=== PATIENT | female | born 1965 | race Caucasian/White ===

== ENCOUNTER 2016-12-20 21:00 | Inpatient (IN) | payer MEDICAID ==
[~2016-12-20] VITALS: Ht 167.6 cm; Wt 83.5 kg
[2016-12-20] MEDS ORDERED: SODIUM CHLORIDE 0.9% 1,000 ML IV ONE (21:06)
[2016-12-20] MEDS ORDERED: PROPOFOL 10MG/ML 100ML 100 ML IV ONE ×2 (21:38→21:45)
[2016-12-20 22:00] LABS: CLARITY URINE CLOUDY (CLEAR); COLOR URINE YELLOW (YELLOW); GLUCOSE URINE 3+ (NEGATIVE); KETONES URINE 4+ (NEGATIVE); LEUKOCYTE ESTERASE URINE NEGATIVE (NEGATIVE); NITRITE URINE NEGATIVE (NEGATIVE); OCCULT BLOOD URINE 3+ (NEGATIVE); PH URINE 5.5 (4.5-8.0); PROTEIN URINE 1+ (NEGATIVE); SPECIFIC GRAVITY URINE 1.026 (1.005-1.030)
[2016-12-20 22:12] LABS: BG BASE EXCESS -14.7 mmol/L (-2.0-2.0); BG CARBOXYHEMOGLOBIN 0.2 % (0.5-1.5); BG DEOXYHEMOGLOBIN 1.2 % (0.0-5.0); BG FRACTION INSPIRED OXYGEN 100; BG HCO3 ACT 11.6 mmol/L (22.0-26.0); BG METHEMOGLOBIN 0.4 % (0.0-1.5); BG OXYGEN SATURATION 98.8 % (92.0-98.5); BG OXYHEMOGLOBIN 98.2 % (94.0-97.0); BG PCO2 29.1 mmHg (35.0-45.0); BG PH 7.219 (7.350-7.450); BG PO2 167.2 mmHg (75.0-100.0); BG SAMPLE SITE RIGHT BRACHIAL; BG TIDAL VOLUME(mL) 550 mL; BG TOTAL HEMOGLOBIN 12.1 g/dL (12.0-18.0); BG VENT MODE VENT - A/C; BG VENT RATE 18 set
[2016-12-20 22:13] LABS: *AMPHETAMINES SCREEN URINE NEGATIVE (NEGATIVE); *BARBITURATES SCREEN URINE NEGATIVE (NEGATIVE); *BENZODIAZEPINES SCREEN URINE NEGATIVE (NEGATIVE); *COCAINE SCREEN URINE NEGATIVE (NEGATIVE); CANNABINOID URINE SCREEN NEGATIVE (NEGATIVE); METHADONE URINE SCREEN NEGATIVE (NEGATIVE); OPIATES URINE SCREEN NEGATIVE (NEGATIVE); PHENCYCLIDINE URINE SCREEN NEGATIVE (NEGATIVE)
[2016-12-20] MEDS ORDERED: ALBUTEROL (0.083%) 2.5MG/3ML NEB HHN STA (22:57)
[2016-12-20] MEDS ORDERED: IPRATROPIUM BROMIDE (0.02%) 0.5MG/2.5ML NEB HHN STA (22:57)
[2016-12-20] MEDS ORDERED: METHYLPREDNISOLONE SOD SUCC 125 MG/2 ML VIAL IV STA (22:57)
[2016-12-20 23:00] LABS: HEMATOCRIT. 36.3 % (36.0-48.0); HEMOGLOBIN. 11.5 g/dL (12.0-16.0); MEAN CORPUSCULAR HEMOGLOBIN 28.2 pg (28.0-32.0); MEAN CORPUSCULAR VOLUME 89.4 fL (81.0-99.0); MEAN PLATELET VOLUME 11.5 fl (7.4-10.4); PLATELET 127 x1000/uL (130-400); RED BLOOD CELL COUNT 4.07 mill/uL (4.2-5.4); RED CELL DISTRIBUTION WIDTH 17.1 % (11.6-14.6)
[2016-12-20] MEDS ORDERED: MAGNESIUM 2 G PREMIX 50 ML IV ONE (23:00)
[2016-12-20] MEDS ORDERED: PIPERACILLIN/TAZ 3.375G PREMIX 50 ML IV ONE (23:00)
[2016-12-20] MEDS ORDERED: SODIUM CHLORIDE 0.9% 1000ML BAG (SEPSIS BOLUS) IV ONE (23:00)
[2016-12-20 23:09] LABS: HCG SCREEN NEGATIVE; INR 1.1; PROTHROMBIN TIME 10.9 sec
[2016-12-20] MEDS ORDERED: IPRATROPIUM/ALBUTEROL 0.5-3(2.5)MG/3ML NEB ONE (23:10)
[2016-12-20] MEDS ORDERED: ALBUTEROL (0.5%) 2.5MG/0.5ML NEB HHN ONE (23:10)
[2016-12-20 23:12] LABS: PLATELET ESTIMATE SLIGHTLY DECREASED
[2016-12-20 23:14] LABS: CARBON DIOXIDE 14 mEq/L (21-32); CHLORIDE 104 mEq/L (98-107); ETHANOL BLOOD < 10 mg/dL
[2016-12-20] MEDS ORDERED: INSULIN REGULAR (DRIP) 100 UNITS in SODIUM CHLORIDE 0.9% 100 ML IV ONE ×2 (23:25→23:45)
[2016-12-20] MEDS ORDERED: POTASSIUM CHLORIDE INJ 20 MEQ in SODIUM CHLORIDE 0.9% 1,000 ML IV STA (23:25)
[2016-12-20] MEDS ORDERED: INSULIN REGULAR (DRIP) 100 UNITS in SODIUM CHLORIDE 0.9% 100 ML IV SCH (23:26)
[2016-12-20] MEDS ORDERED: NA PHOS,M-B/NA PHOS,DI-BA ENEMA 118ML PR PRN (23:30)
[2016-12-20] MEDS ORDERED: MAGNESIUM/ALUMINUM HYDROXIDE/SIMETHICONE 30ML UDC PO PRN (23:30)
[2016-12-20] MEDS ORDERED: GUAIFENESIN 200MG/10ML SUGAR FREE UDC PO PRN (23:30)
[2016-12-20] MEDS ORDERED: DIPHENHYDRAMINE 50MG/ML VIAL IV PRN (23:30)
[2016-12-20] MEDS ORDERED: DEXTROSE 50% WATER 50ML SYRINGE IV PRN ×2 (23:30)
[2016-12-20] MEDS ORDERED: IPRATROPIUM/ALBUTEROL 0.5-3(2.5)MG/3ML NEB INH PRN (23:30)
[2016-12-20] MEDS ORDERED: ACETAMINOPHEN 650MG SUPP PR PRN (23:30)
[2016-12-20] MEDS ORDERED: DOCUSATE SODIUM 100MG CAPSULE PO PRN (23:30)
[2016-12-20] MEDS ORDERED: ONDANSETRON HCL 4MG/2ML VIAL IV PRN (23:30)
[2016-12-20 23:50] LABS: PHOSPHORUS 2.3 mg/dL (2.5-4.9)
[2016-12-21] VITALS (68 sets, daily range): BP systolic 98–172; BP diastolic 44–94
[2016-12-21] MEDS ORDERED: ASPIRIN 300MG SUPP PR ONE (01:00)
[2016-12-21] MEDS ORDERED: SODIUM CHLORIDE 0.45% 1,000 ML IV SCH (02:09)
[2016-12-21] MEDS: IPRATROPIUM/ALBUTEROL 0.5-3(2.5)MG/3ML NEB INH SCH ×3 (02:18→20:38)
[2016-12-21] MEDS: BLOOD SUGAR DIAGNOSTIC STRIP TEST SCH ×22 (02:23→23:31)
[2016-12-21] MEDS ORDERED: FENTANYL CITRATE/PF 500 MCG in SODIUM CHLORIDE 0.9% 40 ML IV PRN (02:30)
[2016-12-21] MEDS ORDERED: KCL 20MEQ/100ML PREMIX 100 ML IV ONE ×2 (02:30)
[2016-12-21] MEDS ORDERED: MIDAZOLAM HCL 50 MG in DEXTROSE 5% WATER 40 ML IV PRN (02:30)
[2016-12-21] MEDS ORDERED: VANCOMYCIN 1500MG in DEXTROSE 5% WATER 250ML IV NR (03:00)
[2016-12-21] MEDS ORDERED: METO-296 PO (04:29)
[2016-12-21] MEDS ORDERED: METF10002 PO (04:36)
[2016-12-21] MEDS ORDERED: LOSA100T14 PO (04:37)
[2016-12-21] MEDS ORDERED: TRAZ-132 PO (04:40)
[2016-12-21] MEDS ORDERED: ISOS60TA4 PO (04:40)
[2016-12-21] MEDS ORDERED: PRAV40TA58 PO (04:41)
[2016-12-21] MEDS ORDERED: ARIP15TA3 PO (04:41)
[2016-12-21] MEDS ORDERED: OXYB15TA9 PO (04:42)
[2016-12-21] MEDS ORDERED: ALBU6.7H INH (04:43)
[2016-12-21] MEDS ORDERED: FURO20TA4 PO (04:43)
[2016-12-21] MEDS ORDERED: TRAM50TA3 PO (04:44)
[2016-12-21] MEDS ORDERED: CLON0.1T PO (04:45)
[2016-12-21] MEDS ORDERED: TIMO15DR12 EACHEYE (04:45)
[2016-12-21] MEDS ORDERED: INSU3INS6 SUBCUT (04:47)
[2016-12-21] MEDS: SODIUM CHLORIDE 0.9% INJ 3ML FLUSH IVF SCH ×3 (05:29→21:56)
[2016-12-21] MEDS ORDERED: NOREPINEPHRINE 8 MG in DEXT 5% WATER 242 ML IV PRN (05:30)
[2016-12-21] MEDS ORDERED: INSULIN REGULAR (DRIP) 100 UNITS in SODIUM CHLORIDE 0.9% 99 ML IV PRN (06:00)
[2016-12-21 06:01] LABS: HEMATOCRIT. 30.8 % (36.0-48.0); HEMOGLOBIN. 9.9 g/dL (12.0-16.0); MEAN CORPUSCULAR HEMOGLOBIN 27.7 pg (28.0-32.0); MEAN CORPUSCULAR VOLUME 85.9 fL (81.0-99.0); MEAN PLATELET VOLUME 10.8 fl (7.4-10.4); PLATELET 111 x1000/uL (130-400); RED BLOOD CELL COUNT 3.59 mill/uL (4.2-5.4); RED CELL DISTRIBUTION WIDTH 16.3 % (11.6-14.6)
[2016-12-21] MEDS: PIPERACILLIN/TAZ 3.375G PREMIX 50 ML IV SCH ×3 (06:12→21:56)
[2016-12-21] MEDS ORDERED: DEXTROSE 50% WATER 50ML SYRINGE IV PRN ×2 (06:30)
[2016-12-21] MEDS ORDERED: POTASSIUM CHLORIDE INJ 40 MEQ in DEXT 5% WATER 500 ML IV ONE (07:00)
[2016-12-21 07:09] LABS: TROPONIN I 2.7 ng/mL (0.00-0.04)
[2016-12-21] MEDS ORDERED: POTASSIUM CHLORIDE 20MEQ TABLET SR PO ONE (07:15)
[2016-12-21 07:45] LABS: PLATELET ESTIMATE SLIGHTLY DECREASED
[2016-12-21] MEDS: INSULIN REGULAR (DRIP) 100 UNITS in SODIUM CHLORIDE 0.9% 100 ML IV SCH ×3 (08:01→18:16)
[2016-12-21 08:04] LABS: BG BASE EXCESS -8.8 mmol/L (-2.0-2.0); BG CARBOXYHEMOGLOBIN 0.3 % (0.5-1.5); BG DEOXYHEMOGLOBIN 1.9 % (0.0-5.0); BG FRACTION INSPIRED OXYGEN 60; BG HCO3 ACT 16.2 mmol/L (22.0-26.0); BG METHEMOGLOBIN 0.2 % (0.0-1.5); BG OXYGEN SATURATION 98.1 % (92.0-98.5); BG OXYHEMOGLOBIN 97.6 % (94.0-97.0); BG PCO2 31.8 mmHg (35.0-45.0); BG PH 7.325 (7.350-7.450); BG PO2 113.1 mmHg (75.0-100.0); BG SAMPLE SITE LEFT BRACHIAL; BG TIDAL VOLUME(mL) 500 mL; BG TOTAL HEMOGLOBIN 10.5 g/dL (12.0-18.0); BG VENT MODE VENT - A/C; BG VENT RATE 14 set
[2016-12-21] MEDS: PANTOPRAZOLE SODIUM 40 MG/VIAL IV SCH ×2 (08:32→21:21)
[2016-12-21] MEDS ORDERED: SODIUM CHLORIDE 10% FOR INH 15ML VIAL NEB INH SCH (08:45)
[2016-12-21] MEDS ORDERED: ASPIRIN 81MG EC TABLET PO SCH (09:00)
[2016-12-21] MEDS ORDERED: ENOXAPARIN 40MG/0.4ML SYR SUBCUT SCH (09:00)
[2016-12-21] MEDS ORDERED: DEXT 5%/0.45% NACL KCL 20MEQ/L 1,000 ML IV SCH (10:30)
[2016-12-21 10:56] LABS: BETA HYDROXYBUTYRATE 3.6 mMol/L (0.0-0.3)
[2016-12-21 10:59] LABS: PHOSPHORUS 0.3 mg/dL (2.5-4.9)
[2016-12-21] MEDS ORDERED: ACETAMINOPHEN 650MG SUPP PR PRN (11:00)
[2016-12-21 13:21] LABS: HEMATOCRIT 31.5 % (36.0-48.0); HEMOGLOBIN 10.6 g/dL (12.0-16.0)
[2016-12-21 13:53] LABS: TROPONIN I 2.8 ng/mL (0.00-0.04)
[2016-12-21] MEDS ORDERED: SODIUM PHOS,M-BASIC-D-BASIC 30 MM in DEXT 5% WATER 500 ML IV NR (14:30)
[2016-12-21] MEDS: ACETAMINOPHEN 650MG/20.3ML UDC GT PRN (15:30)
[2016-12-21] MEDS ORDERED: POTASSIUM CHLORIDE INJ 40 MEQ in DEXT 5% WATER 250 ML IV NR (17:30)
[2016-12-21] MEDS: METOPROLOL TARTRATE 25MG TABLET PO SCH ×2 (18:10→21:21)
[2016-12-21] MEDS: BUDESONIDE 0.5MG/2ML NEB HHN SCH (20:37)
[2016-12-21] MEDS: ATORVASTATIN CALCIUM 20MG TABLET NG SCH (21:21)
[2016-12-21] MEDS: POTASSIUM CHLORIDE INJ 40 MEQ in DEXTROSE 5% WATER 1,000 ML IV SCH (22:23)
[2016-12-22] VITALS (86 sets, daily range): BP systolic 37–187; BP diastolic 27–116
[2016-12-22] MEDS: BLOOD SUGAR DIAGNOSTIC STRIP TEST SCH ×17 (00:18→20:33)
[2016-12-22] MEDS: IPRATROPIUM/ALBUTEROL 0.5-3(2.5)MG/3ML NEB INH SCH ×3 (02:24→20:03)
[2016-12-22] MEDS ORDERED: VANCOMYCIN 1 G PREMIX 200 ML IV SCH ×2 (03:00)
[2016-12-22] MEDS: INSULIN REGULAR (DRIP) 100 UNITS in SODIUM CHLORIDE 0.9% 100 ML IV SCH (05:09)
[2016-12-22] MEDS: SODIUM CHLORIDE 0.9% INJ 3ML FLUSH IVF SCH ×3 (05:10→21:13)
[2016-12-22] MEDS: PIPERACILLIN/TAZ 3.375G PREMIX 50 ML IV SCH ×3 (05:10→21:10)
[2016-12-22 05:23] LABS: BASOPHILS % 0.3 % (0.0-2.0); HEMATOCRIT. 29.5 % (36.0-48.0); HEMOGLOBIN. 9.7 g/dL (12.0-16.0); MEAN CORPUSCULAR HEMOGLOBIN 27.9 pg (28.0-32.0); MEAN CORPUSCULAR VOLUME 84.9 fL (81.0-99.0); MONOCYTES % 2.6 % (2.0-8.0); NEUTROPHILS % 89.1 % (40.0-76.0); PLATELET 103 x1000/uL (130-400); RED BLOOD CELL COUNT 3.48 mill/uL (4.2-5.4); RED CELL DISTRIBUTION WIDTH 15.9 % (11.6-14.6)
[2016-12-22 06:26] LABS: CHLORIDE 119 mEq/L (98-107)
[2016-12-22 06:48] LABS: CARBON DIOXIDE 19 mEq/L (21-32)
[2016-12-22 07:09] LABS: PHOSPHORUS 1.4 mg/dL (2.5-4.9)
[2016-12-22] MEDS: BUDESONIDE 0.5MG/2ML NEB HHN SCH ×2 (07:51→20:04)
[2016-12-22] MEDS: PANTOPRAZOLE SODIUM 40 MG/VIAL IV SCH ×2 (08:19→20:13)
[2016-12-22] MEDS: METOPROLOL TARTRATE 25MG TABLET PO SCH ×2 (08:21→20:14)
[2016-12-22 08:35] LABS: BG BASE EXCESS -2.8 mmol/L (-2.0-2.0); BG CARBOXYHEMOGLOBIN 0.3 % (0.5-1.5); BG DEOXYHEMOGLOBIN 3.2 % (0.0-5.0); BG FRACTION INSPIRED OXYGEN 40; BG HCO3 ACT 20.8 mmol/L (22.0-26.0); BG METHEMOGLOBIN 0.2 % (0.0-1.5); BG OXYGEN SATURATION 96.8 % (92.0-98.5); BG OXYHEMOGLOBIN 96.3 % (94.0-97.0); BG PCO2 32.1 mmHg (35.0-45.0); BG PH 7.429 (7.350-7.450); BG PO2 90.6 mmHg (75.0-100.0); BG SAMPLE SITE RIGHT BRACHIAL; BG TIDAL VOLUME(mL) 500 mL; BG TOTAL HEMOGLOBIN 10.9 g/dL (12.0-18.0); BG VENT MODE VENT - A/C; BG VENT RATE 14 set
[2016-12-22] MEDS ORDERED: CLONIDINE 0.1MG TABLET NG PRN (11:45)
[2016-12-22] MEDS: AMLODIPINE 5MG TABLET NG SCH (11:58)
[2016-12-22] MEDS ORDERED: LORAZEPAM 2MG/ML CPJ IV PRN (12:00)
[2016-12-22] MEDS: ACETAMINOPHEN 650MG/20.3ML UDC GT PRN ×2 (12:07→18:14)
[2016-12-22 13:10] LABS: BG BASE EXCESS -2.8 mmol/L (-2.0-2.0); BG CARBOXYHEMOGLOBIN 0.2 % (0.5-1.5); BG DEOXYHEMOGLOBIN 5.2 % (0.0-5.0); BG FRACTION INSPIRED OXYGEN 32; BG HCO3 ACT 20.6 mmol/L (22.0-26.0); BG METHEMOGLOBIN 0.2 % (0.0-1.5); BG OXYGEN SATURATION 94.8 % (92.0-98.5); BG OXYHEMOGLOBIN 94.4 % (94.0-97.0); BG PCO2 31.5 mmHg (35.0-45.0); BG PH 7.434 (7.350-7.450); BG PO2 73.2 mmHg (75.0-100.0); BG SAMPLE SITE RIGHT RADIAL; BG TOTAL HEMOGLOBIN 11.1 g/dL (12.0-18.0); BG VENT MODE NASAL CANNULA
[2016-12-22] MEDS: METHYLPREDNISOLONE SOD SUCC 40 MG/ML VIAL IV SCH ×2 (13:13→21:09)
[2016-12-22] MEDS: POTASSIUM CHLORIDE INJ 40 MEQ in DEXTROSE 5% WATER 1,000 ML IV SCH (14:06)
[2016-12-22] MEDS ORDERED: DEXTROSE 50% WATER 50ML SYRINGE IV PRN ×2 (14:30)
[2016-12-22] MEDS: INSULIN LISPRO 100 UNITS/ML SUBCUT SCH ×3 (14:45→20:41)
[2016-12-22] MEDS ORDERED: KCL 20MEQ/100ML PREMIX 100 ML IV NR (16:30)
[2016-12-22] MEDS ORDERED: BLOOD SUGAR DIAGNOSTIC STRIP TEST SCH ×2 (17:50)
[2016-12-22] MEDS ORDERED: POTASSIUM PHOS,M-BASIC-D-BASIC 20 MMOL in DEXT 5% WATER 243.3333 ML IV NR (18:30)
[2016-12-22] MEDS: ATORVASTATIN CALCIUM 20MG TABLET NG SCH (20:14)
[2016-12-22] MEDS: CLONIDINE 0.1MG TABLET PO SCH (21:13)
[2016-12-22] MEDS ORDERED: INSULIN DETEMIR UD 100 UNITS/ML SYR SUBCUT SCH (23:59)
[2016-12-23] VITALS (26 sets, daily range): BP systolic 134–182; BP diastolic 66–121
[2016-12-23] MEDS: IPRATROPIUM/ALBUTEROL 0.5-3(2.5)MG/3ML NEB INH SCH ×5 (02:12→23:53)
[2016-12-23] MEDS ORDERED: VANCOMYCIN 1 G PREMIX 200 ML IV SCH (03:00)
[2016-12-23] MEDS ORDERED: ACETAMINOPHEN 325MG TABLET GT PRN (05:00)
[2016-12-23] MEDS: SODIUM CHLORIDE 0.9% INJ 3ML FLUSH IVF SCH ×3 (05:03→21:27)
[2016-12-23] MEDS: CLONIDINE 0.1MG TABLET PO SCH (05:04)
[2016-12-23] MEDS: PIPERACILLIN/TAZ 3.375G PREMIX 50 ML IV SCH ×3 (05:04→21:15)
[2016-12-23] MEDS: METHYLPREDNISOLONE SOD SUCC 40 MG/ML VIAL IV SCH (05:04)
[2016-12-23 05:59] LABS: HEMATOCRIT. 28.4 % (36.0-48.0); HEMOGLOBIN. 9.2 g/dL (12.0-16.0); MEAN CORPUSCULAR HEMOGLOBIN 27.8 pg (28.0-32.0); MEAN CORPUSCULAR VOLUME 85.6 fL (81.0-99.0); MEAN PLATELET VOLUME 11.2 fl (7.4-10.4); PLATELET 85 x1000/uL (130-400); RED BLOOD CELL COUNT 3.32 mill/uL (4.2-5.4); RED CELL DISTRIBUTION WIDTH 15.9 % (11.6-14.6)
[2016-12-23 07:24] LABS: PLATELET ESTIMATE SLIGHTLY DECREASED
[2016-12-23] MEDS: BLOOD SUGAR DIAGNOSTIC STRIP TEST SCH ×4 (07:33→20:31)
[2016-12-23] MEDS: BUDESONIDE 0.5MG/2ML NEB HHN SCH ×2 (07:51→23:53)
[2016-12-23] MEDS ORDERED: INSULIN DETEMIR UD 100 UNITS/ML SYR SUBCUT SCH (08:00)
[2016-12-23] MEDS: PANTOPRAZOLE SODIUM 40 MG/VIAL IV SCH ×2 (08:12→20:29)
[2016-12-23] MEDS: AMLODIPINE 5MG TABLET NG SCH ×2 (08:12→20:29)
[2016-12-23] MEDS: METOPROLOL TARTRATE 25MG TABLET PO SCH ×2 (08:13→20:30)
[2016-12-23 08:17] LABS: BG BASE EXCESS -4.4 mmol/L (-2.0-2.0); BG CARBOXYHEMOGLOBIN 0.5 % (0.5-1.5); BG DEOXYHEMOGLOBIN 2.4 % (0.0-5.0); BG FRACTION INSPIRED OXYGEN 32; BG HCO3 ACT 19.3 mmol/L (22.0-26.0); BG METHEMOGLOBIN 0.2 % (0.0-1.5); BG OXYGEN SATURATION 97.6 % (92.0-98.5); BG OXYHEMOGLOBIN 96.9 % (94.0-97.0); BG PCO2 30.6 mmHg (35.0-45.0); BG PH 7.417 (7.350-7.450); BG PO2 100.3 mmHg (75.0-100.0); BG SAMPLE SITE LEFT RADIAL; BG TOTAL HEMOGLOBIN 10.4 g/dL (12.0-18.0); BG VENT MODE NASAL CANNULA
[2016-12-23] MEDS: INSULIN LISPRO 100 UNITS/ML SUBCUT SCH ×4 (09:01→20:30)
[2016-12-23] MEDS: CLONIDINE 0.2MG TABLET PO SCH ×2 (13:10→21:15)
[2016-12-23] MEDS: ATORVASTATIN CALCIUM 20MG TABLET NG SCH (20:29)
[2016-12-23] MEDS: INSULIN DETEMIR UD 100 UNITS/ML SYR SUBCUT SCH (21:27)
[2016-12-23] MEDS: ACETAMINOPHEN 325MG TABLET PO PRN (23:01)
[2016-12-24] VITALS (7 sets, daily range): BP systolic 106–142; BP diastolic 69–92
[2016-12-24] MEDS: CLONIDINE 0.2MG TABLET PO SCH ×3 (05:27→22:30)
[2016-12-24] MEDS: ACETAMINOPHEN 325MG TABLET PO PRN ×2 (05:27→22:30)
[2016-12-24] MEDS: PIPERACILLIN/TAZ 3.375G PREMIX 50 ML IV SCH ×3 (05:28→20:35)
[2016-12-24] MEDS: SODIUM CHLORIDE 0.9% INJ 3ML FLUSH IVF SCH ×3 (05:28→22:33)
[2016-12-24 05:50] LABS: BASOPHILS % 0.3 % (0.0-2.0); EOSINOPHILS % 0.2 % (0.0-5.0); HEMATOCRIT. 30.7 % (36.0-48.0); HEMOGLOBIN. 10.1 g/dL (12.0-16.0); MEAN CORPUSCULAR HEMOGLOBIN 28.3 pg (28.0-32.0); MEAN CORPUSCULAR VOLUME 85.7 fL (81.0-99.0); MEAN PLATELET VOLUME 11.3 fl (7.4-10.4); MONOCYTES % 1.7 % (2.0-8.0); NEUTROPHILS % 86.8 % (40.0-76.0); PLATELET 102 x1000/uL (130-400); RED BLOOD CELL COUNT 3.58 mill/uL (4.2-5.4); RED CELL DISTRIBUTION WIDTH 15.4 % (11.6-14.6)
[2016-12-24] MEDS ORDERED: VANCOMYCIN 1 G PREMIX 200 ML IV SCH (06:00)
[2016-12-24 06:25] LABS: PHOSPHORUS 2.6 mg/dL (2.5-4.9); VANCOMYCIN TROUGH 7.7 ug/mL (5.0-10.0)
[2016-12-24] MEDS: BLOOD SUGAR DIAGNOSTIC STRIP TEST SCH ×4 (06:36→20:37)
[2016-12-24] MEDS: INSULIN LISPRO 100 UNITS/ML SUBCUT SCH ×4 (06:37→22:32)
[2016-12-24] MEDS: IPRATROPIUM/ALBUTEROL 0.5-3(2.5)MG/3ML NEB INH SCH ×3 (07:47→20:24)
[2016-12-24] MEDS: BUDESONIDE 0.5MG/2ML NEB HHN SCH (07:47)
[2016-12-24 08:33] LABS: BG BASE EXCESS -1.5 mmol/L (-2.0-2.0); BG CARBOXYHEMOGLOBIN 0.1 % (0.5-1.5); BG DEOXYHEMOGLOBIN 6.1 % (0.0-5.0); BG FRACTION INSPIRED OXYGEN 28; BG METHEMOGLOBIN 0.3 % (0.0-1.5); BG OXYGEN SATURATION 93.9 % (92.0-98.5); BG OXYHEMOGLOBIN 93.5 % (94.0-97.0); BG PCO2 32.9 mmHg (35.0-45.0); BG PH 7.443 (7.350-7.450); BG PO2 70.8 mmHg (75.0-100.0); BG SAMPLE SITE RIGHT RADIAL; BG TOTAL HEMOGLOBIN 10.8 g/dL (12.0-18.0); BG VENT MODE NASAL CANNULA
[2016-12-24] MEDS: AMLODIPINE 5MG TABLET NG SCH ×2 (08:43→20:37)
[2016-12-24] MEDS: PANTOPRAZOLE SODIUM 40 MG/VIAL IV SCH ×2 (08:43→20:35)
[2016-12-24] MEDS: METOPROLOL TARTRATE 25MG TABLET PO SCH ×2 (08:43→20:36)
[2016-12-24] MEDS: INSULIN DETEMIR UD 100 UNITS/ML SYR SUBCUT SCH ×2 (09:12→22:32)
[2016-12-24] MEDS: VANCOMYCIN 1250MG in DEXTROSE 5% WATER 250ML IV SCH (14:04)
[2016-12-24] MEDS ORDERED: BUDESONIDE 0.5MG/2ML NEB ONE (20:15)
[2016-12-24] MEDS: ATORVASTATIN CALCIUM 20MG TABLET NG SCH (20:35)
[2016-12-25] VITALS (7 sets, daily range): BP systolic 106–144; BP diastolic 70–91
[2016-12-25] MEDS: IPRATROPIUM/ALBUTEROL 0.5-3(2.5)MG/3ML NEB INH SCH ×4 (00:58→20:40)
[2016-12-25] MEDS: PIPERACILLIN/TAZ 3.375G PREMIX 50 ML IV SCH (03:35)
[2016-12-25] MEDS: CLONIDINE 0.2MG TABLET PO SCH ×3 (05:15→22:07)
[2016-12-25] MEDS: SODIUM CHLORIDE 0.9% INJ 3ML FLUSH IVF SCH ×3 (05:23→22:07)
[2016-12-25 06:31] LABS: BASOPHILS % 0.3 % (0.0-2.0); EOSINOPHILS % 0.8 % (0.0-5.0); HEMATOCRIT. 30.4 % (36.0-48.0); LYMPHOCYTES % 15.4 % (20.0-50.0); MEAN CORPUSCULAR HEMOGLOBIN 28.5 pg (28.0-32.0); MEAN CORPUSCULAR VOLUME 86.3 fL (81.0-99.0); MEAN PLATELET VOLUME 11.4 fl (7.4-10.4); MONOCYTES % 2.5 % (2.0-8.0); PLATELET 128 x1000/uL (130-400); RED BLOOD CELL COUNT 3.53 mill/uL (4.2-5.4); RED CELL DISTRIBUTION WIDTH 14.9 % (11.6-14.6)
[2016-12-25] MEDS: INSULIN LISPRO 100 UNITS/ML SUBCUT SCH ×5 (07:12→20:28)
[2016-12-25] MEDS: BLOOD SUGAR DIAGNOSTIC STRIP TEST SCH ×4 (07:12→20:25)
[2016-12-25 07:45] LABS: BG BASE EXCESS -2.5 mmol/L (-2.0-2.0); BG CARBOXYHEMOGLOBIN 0.4 % (0.5-1.5); BG DEOXYHEMOGLOBIN 6.6 % (0.0-5.0); BG FRACTION INSPIRED OXYGEN 28; BG METHEMOGLOBIN 0.2 % (0.0-1.5); BG OXYGEN SATURATION 93.4 % (92.0-98.5); BG OXYHEMOGLOBIN 92.8 % (94.0-97.0); BG PCO2 31.9 mmHg (35.0-45.0); BG PH 7.437 (7.350-7.450); BG PO2 68.8 mmHg (75.0-100.0); BG SAMPLE SITE RIGHT BRACHIAL; BG TOTAL HEMOGLOBIN 10.6 g/dL (12.0-18.0); BG VENT MODE NASAL CANNULA
[2016-12-25] MEDS: METOPROLOL TARTRATE 25MG TABLET PO SCH ×2 (09:49→20:22)
[2016-12-25] MEDS: PANTOPRAZOLE SODIUM 40 MG/VIAL IV SCH ×2 (09:49→20:21)
[2016-12-25] MEDS: AMLODIPINE 5MG TABLET NG SCH ×2 (09:49→20:21)
[2016-12-25] MEDS: VANCOMYCIN 1250MG in DEXTROSE 5% WATER 250ML IV SCH (09:50)
[2016-12-25] MEDS: INSULIN DETEMIR UD 100 UNITS/ML SYR SUBCUT SCH ×2 (10:23→22:10)
[2016-12-25] MEDS ORDERED: REGADENOSON 0.4 MG/5 ML IV NR (12:15)
[2016-12-25] MEDS ORDERED: REGADENOSON 0.4 MG/5 ML IV ONE (12:40)
[2016-12-25] MEDS ORDERED: LEVOFLOXACIN 500MG PREMIX 100 ML IV NR (16:00)
[2016-12-25] MEDS ORDERED: LEVO500T15 PO (18:32)
[2016-12-25] MEDS: ACETAMINOPHEN 325MG TABLET PO PRN (20:21)
[2016-12-25] MEDS: ATORVASTATIN CALCIUM 20MG TABLET NG SCH (20:21)
[2016-12-26] VITALS: BP 131/78
[2016-12-26 04:00] VITALS: BP 100/62
[2016-12-26] MEDS: CLONIDINE 0.2MG TABLET PO SCH (06:00)
[2016-12-26] MEDS: BLOOD SUGAR DIAGNOSTIC STRIP TEST SCH (06:46)
[2016-12-26] MEDS: ACETAMINOPHEN 325MG TABLET PO PRN (06:49)
[2016-12-26] MEDS: SODIUM CHLORIDE 0.9% INJ 3ML FLUSH IVF SCH (06:51)
[2016-12-26] MEDS: INSULIN LISPRO 100 UNITS/ML SUBCUT SCH (06:51)
[2016-12-26 08:00] VITALS: BP 121/75
[2016-12-26] MEDS: IPRATROPIUM/ALBUTEROL 0.5-3(2.5)MG/3ML NEB INH SCH (09:48)
[2016-12-26] MEDS: INSULIN DETEMIR UD 100 UNITS/ML SYR SUBCUT SCH (10:39)
[2016-12-26 10:40] VITALS: BP 121/75
[2016-12-26] MEDS ORDERED: LEVOFLOXACIN 500MG TABLET PO SCH (18:00)
== END 2016-12-26 11:40 | disposition home or self-care (01) | DRG 720 ==
LOC: ER 21:30 → CVICU 23:24 → 8WST 12-24 00:57
PROVIDERS: ADMIT Family Medicine; ATTEND Family Medicine
PROC: 0BH17EZ Insertion of Endotracheal Airway into Trachea, Via Natural or Artificial Opening (ICD-10-PCS; principal; 2016-12-20)
PROC: 5A1945Z Respiratory Ventilation, 24-96 Consecutive Hours (ICD-10-PCS; 2016-12-20)
DX: A40.9 Streptococcal sepsis, unspecified (principal); I21.4 Non-ST elevation (NSTEMI) myocardial infarction; J96.01 Acute respiratory failure with hypoxia; J69.0 Pneumonitis due to inhalation of food and vomit; R65.21 Severe sepsis with septic shock; G93.41 Metabolic encephalopathy; I50.33 Acute on chronic diastolic (congestive) heart failure; E13.10 Other specified diabetes mellitus with ketoacidosis without coma; N17.9 Acute kidney failure, unspecified; I13.0 Hypertensive heart and chronic kidney disease with heart failure and stage 1 through stage 4 chronic kidney disease, or unspecified chronic kidney disease; J15.4 Pneumonia due to other streptococci; D50.0 Iron deficiency anemia secondary to blood loss (chronic); E87.6 Hypokalemia; J44.0 Chronic obstructive pulmonary disease with (acute) lower respiratory infection; N18.9 Chronic kidney disease, unspecified; M62.82 Rhabdomyolysis; D69.6 Thrombocytopenia, unspecified; E11.22 Type 2 diabetes mellitus with diabetic chronic kidney disease; E66.09 Other obesity due to excess calories; E78.1 Pure hyperglyceridemia; E78.5 Hyperlipidemia, unspecified; F17.210 Nicotine dependence, cigarettes, uncomplicated; J45.901 Unspecified asthma with (acute) exacerbation; R31.9 Hematuria, unspecified; T50.1X5A Adverse effect of loop [high-ceiling] diuretics, initial encounter; L89.309 Pressure ulcer of unspecified buttock, unspecified stage; K92.2 Gastrointestinal hemorrhage, unspecified; F41.9 Anxiety disorder, unspecified; K59.00 Constipation, unspecified; L98.8 Other specified disorders of the skin and subcutaneous tissue; Z88.0 Allergy status to penicillin; Z68.29 Body mass index [BMI] 29.0-29.9, adult; Z79.899 Other long term (current) drug therapy; Z71.6 Tobacco abuse counseling; Z88.2 Allergy status to sulfonamides
CPT/HCPCS: 31500; 36415; 36556; 36600; 43753; 70450; 71010; 71250; 76770; 78452; 80048; 80053; 80061; 80202; 80305; 81001; 82010; 82270; 82375; 82550; 82805; 82962; 83036; 83605; 83690; 83735; 83880; 84100; 84484; 84703; 85014; 85018; 85025; 85379; 85610; 86850; 86900; 87040; 87070; 87077; 87186; 93005; 93017; 93306; 93970; 94002; 94003; 94640; 94660; 96365; 96368; 96375; 96376; 97116; 97162; 97530; 99285; A6261; A9500; C9113; G0482; J1815; J1956; J2250; J2543; J2704; J2785; J2920; J2930; J3010; J3370; J3475; J3480; J3490; J7030; J7050; J7060; J7070; J7611; J7620; J7626; A4315